=== PATIENT | female | born 1960 | race Caucasian/White ===

== ENCOUNTER 2018-10-16 10:52 | Emergency (ER) | payer MEDICAID ==
[2018-10-16] MEDS ORDERED: Morphine Sulfate 2 mg/mL 1mL Syr IVP STA ×4 (11:22→18:19)
[2018-10-16] MEDS ORDERED: Lactated Ringer 1,000 ML IV ONE (11:23)
[2018-10-16] MEDS ORDERED: Morphine Sulfate 2 mg/mL 1mL Syr ONE ×4 (11:54→18:22)
[2018-10-16 13:04] LABS: ALB/GLOB RATIO 1.4 (1.0-1.8); ALBUMIN 4.3 gm/dL (3.7-5.3); ALKALINE PHOSPHATASE 143 U/L (34-104); ANION GAP 14.2 (7.0-16.0); BILIRUBIN,TOTAL 0.4 mg/dL (0.3-1.0); BUN - UREA NITROGEN 21 mg/dL (7-25); CALCIUM SERUM 9.9 mg/dL (8.6-10.3); CARBON DIOXIDE 23.9 mEq/L (21.0-31.0); CHLORIDE 105 mEq/L (98-107); CREATININE - SERUM 0.9 mg/dL (0.6-1.2); GFR AFRICAN-AMERICAN > 60.0 ml/min (>90); GFR NON AFRICAN-AMERICAN > 60.0 ml/min; GLUCOSE 103 mg/dL (70-105); POTASSIUM SERUM 4.1 mEq/L (3.5-5.1); SGOT 16 U/L (13-39); SGPT/ALT 16 U/L (7-52); SODIUM SERUM 139 mEq/L (136-145); TOTAL PROTEIN,SERUM 7.4 gm/dL (6.0-8.3)
[2018-10-16] MEDS ORDERED: IOHEXOL 350mgI/mL 150mL IV ONE (13:24)
--- NOTE | 2018-10-16 13:52 | Diagnostic Imaging Report ---
Bilateral lower extremity DVT study HISTORY: Elevated d-dimer COMPARISON: None Technique: Longitudinal and transverse sonographic images of the bilateral lower extremity veins were obtained with doppler analysis. FINDINGS: There is normal compressibility, augmentation and phasicity of the bilateral common femoral, superficial femoral, popliteal, and posterior tibial veins. No thrombus is visualized. IMPRESSION: No evidence of thrombus within the bilateral lower extremity veins.
--- NOTE | 2018-10-16 14:34 | Diagnostic Imaging Report ---
CT pulmonary angiogram spine with IV contrast HISTORY: Back pain COMPARISON: CT lumbar spine performed the same day Technique: Axial images of the thorax were obtained with IV contrast, PE protocol. Multiplanar reconstructions were made. Total DLP: 200, CTDI 9 Findings: No evidence of mediastinal lymphadenopathy. Mild atherosclerosis is noted. No evidence of an aortic aneurysm. Assessment of the pulmonary arterial vasculature demonstrates no evidence of a pulmonary embolus. Note there is streak artifact from IV contrast within the SVC, limiting the examination. Evaluation of pulmonary parenchyma demonstrates chronic lung changes with mild peripheral atelectatic changes. Faint infiltrate of the anterior left upper lobe cannot be excluded. No focal consolidation or effusions. The upper abdomen demonstrates no acute abnormalities. There is a fracture of the L1 vertebral body. Postsurgical changes of the left axillary region is noted. IMPRESSION: No evidence of pulmonary embolus. Mild chronic lung changes and possible COPD. Faint infiltrate of the anterior left upper lobe cannot be excluded. L1 fracture. Please refer to CT lumbar spine the same day for further details. A pathological fracture due to neoplastic involvement cannot be excluded. Note is made of postsurgical changes of the left axillary region. Please correlate patient's clinical history. Mild atherosclerosis.
--- NOTE | 2018-10-16 14:38 | Diagnostic Imaging Report ---
CT lumbar spine without IV contrast HISTORY: Back pain, history of breast cancer with metastases to the right hip COMPARISON: CT PE study of same day Technique: Axial images were obtained from the lower thoracic spine to the upper sacrum without IV contrast. Reconstructions were made. total DLP: 1323, CTDI42 Findings: Images of the lumbar spine obtained without contrast demonstrate complex-appearing fracture involving the L1 vertebral body with a 2 mm retropulsion superiorly and ill-defined demineralization of this vertebral body. There is 20% loss of height of L1. There is mild spinal canal narrowing at this level. No subluxation. Mild to moderate degenerative changes noted greatest in the facet joints of the lower lumbar spine. Multilevel small disc bulges are noted greatest at L4/L5 measuring 3 mm causing mild spinal canal and mild bilateral neural foraminal narrowing. The visualized retroperitoneum demonstrates apertures. Excreted contrast is seen within the urinary tract system secondary to recent CT angiogram study. IMPRESSION: ill defined compression fracture of L1 with 20% loss of height. There is also 2 mm retropulsion with mild spinal canal narrowing. Ill-defined bony mineralization of L1 is noted. Given clinical history, a pathologic compression fracture and metastatic disease of the L1 vertebral body should be considered. If indicated further assessment with MRI without and with IV contrast may be obtained for further involvement and possible epidural involvement. Degenerative changes Osteopenia. Atherosclerotic vascular disease.
[2018-10-16] MEDS ORDERED: cefTRIAXone 1 GM in Sodium Chloride 0.9% 50 ML IV ONE (14:56)
[2018-10-16 15:31] LABS: % BASOPHILS 0.8 % (0.0-2.0); % EOSINOPHILS 0.9 % (0.0-5.0); % LYMPHOCYTES 12.7 % (20.0-50.0); % MONOCYTES 6.3 % (2.0-10.0); % NEUTROPHILS 79.3 % (40.0-80.0); BASOPHILE ABSOLUTE 0.1 Th/cumm (0-0.2); EOSINOPHILE ABSOLUTE 0.1 Th/cmm (0.1-0.4); HEMOGLOBIN 11.1 gm/dL (12-16); LYMPHOCYTE ABSOLUTE 0.8 Th/cmm (1.5-3.0); MEAN CORPUSCULAR HEMOGLOBIN 30.9 pg (27.0-31.0); MEAN CORPUSCULAR HGB CONC 33.6 pg (28.0-36.0); MEAN PLATELET VOLUME 8.1 fl; MONOCYTE ABSOLUTE 0.4 Th/cmm (0.3-1.0); PLATELET COUNT 254 Th/cmm (150-400); RED BLOOD COUNT 3.59 Mil/cmm (3.80-5.10); RED CELL DISTRIBUTION WIDTH 12.3 % (11.5-20.0); WHITE BLOOD COUNT 6.4 Th/cmm (4.8-10.8)
[2018-10-16 15:42] LABS: MAGNESIUM 2.3 mg/dL (1.9-2.7); PHOSPHOROUS 3.6 mg/dL (2.5-5.0)
--- NOTE | 2018-10-16 18:25 | ED Physician Chart ---
ED Chief Complaint/HPI - Patient Information Date Seen:: 10/16/18 Time Seen:: 11:16 Chief Complaint:: low back pain History of Present Illness:: low back pain in a patient who was diagnosed with breast cancer 2 years ago. BLE swelling "over night." Minimal shortness of breath. No change in bowel or bladder No change in sensation. Painful to lie down. Allergies:: Allergies Allergy/AdvReac Type Severity Reaction Status Date / Time No Known Allergies Allergy Verified 10/16/18 11:12 Vitals:: Vital Signs - 8 hr 10/16/18 10/16/18 10/16/18 11:16 12:04 18:08 Temp 98.4 F 98.4 F 98.9 F HR 83 83 79 RR 23 23 17 BP 147/61 O2 Sat % 99 98 10/16/18 18:15 Temp 98.9 F HR 79 RR 17 BP 168/61 O2 Sat % 98 Historian:: Patient, Family Member Review:: Nurse's Note Reviewed ED Review of Systems - Review of Systems General/Constitutional: No fever, No chills, No weight loss, No weakness, No diaphoresis, No edema, No loss of appetite Skin: No skin lesions, No rash, No bruising Head: No headache, No light-headedness Eyes: No loss of vision, No pain, No diplopia ENT: No earache, No nasal drainage, No sore throat, No tinnitus Neck: No neck pain, No swelling, No thyromegaly, No stiffness, No mass noted Cardio Vascular: No chest pain, No palpitations, No PND, No orthopnea, No edema Pulmonary: SOB, No cough, No sputum, No wheezing GI: No nausea, No vomiting, No diarrhea, No pain, No melena, No hematochezia, No constipation, No hematemesis G/U: No dysuria, No frequency, No hematuria Musculoskeletal: Back pain, No muscle pain Endocrine: No polyuria, No polydipsia Psychiatric: No prior psych history, No depression, No anxiety, No suicidal ideation Hematopoietic: No bruising, No lymphadenopathy Allergic/Immuno: No urticaria, No angioedema Neurological: No syncope, No focal symptoms, No weakness, No paresthesia, No headache, No seizure, No dizziness, No confusion, No vertigo Other: BREAST CANCER WITH POSITIVE AREA R HIP WITH BONE SCAN ED Past Medical History - Past Medical History Obtainable: Yes Past Medical History: Other (breast cancer with pos R hip on bone scan. MRI tonight.) Family Medical History - Family Member Mother History Unknown: Yes ED Physical Exam - Physical Examination General/Constitutional: Awake, Well-developed, well-nourished, Alert, GCS 15, Non-toxic appearing, Ambulatory Other Gen/Cons comments:: in severe low back pain. Positive straight leg raise on left. Head: Atraumatic Eyes: Lids, conjuctiva normal, PERRL, EOMI Skin: Nl inspection, No rash, No skin lesions, No ecchymosis, Well hydrated, No lymphadenopathy ENMT: External ears, nose nl, Nasal exam nl, Lips, teeth, gums nl Neck: Nontender, No nuchal rigidity, No stridor Respiratory: Nl effort/Exclusion, Clear to Auscultation, No Wheeze/Rhonchi/Rales Cardio Vascular: RRR, No murmur, gallop, rubs, NL S1 S2 GI: No tenderness/rebounding/guarding, No organomegaly, No hernia, Normal BS's, Nondistended, No mass/bruits, No McBurney tenderness Other comments:: normal rectal tone. Other Extremities comments:: trace edema bilaterally. Negative Alice's. positive straight leg raise on left. Neuro/Psych: Alert/oriented, Normal sensory exam, Normal motor strength, Judgement/insight normal, Mood normal Other Misc comments:: scoliosis of back ED Labs/Radiology/EKG Results - Lab Results Results: Laboratory Tests 10/16/18 10/16/18 10/16/18 11:30 11:30 15:21 WBC 6.4 RBC 3.59 L Hgb 11.1 L Hct 33.0 L MCV 92.0 MCH 30.9 MCHC Differential 33.6 RDW 12.3 Plt Count 254 MPV 8.1 Neutrophils % 79.3 Lymphocytes % 12.7 L Monocytes % 6.3 Eosinophils % 0.9 Basophils % 0.8 ESR D-Dimer 534 H Sodium 139 Potassium 4.1 Chloride 105 Carbon Dioxide 23.9 Anion Gap 14.2 BUN 21 Creatinine 0.9 Est GFR ( Amer) > 60.0 Est GFR (Non-Af Amer) > 60.0 BUN/Creatinine Ratio 23.3 Glucose 103 Calcium 9.9 Phosphorus Magnesium Total Bilirubin 0.4 AST 16 ALT 16 Alkaline Phosphatase 143 H Total Protein 7.4 Albumin 4.3 Globulin 3.1 Albumin/Globulin Ratio 1.4 10/16/18 10/16/18 15:21 15:21 WBC RBC Hgb Hct MCV MCH MCHC Differential RDW Plt Count MPV Neutrophils % Lymphocytes % Monocytes % Eosinophils % Basophils % ESR 61 H D-Dimer Sodium Potassium Chloride Carbon Dioxide Anion Gap BUN Creatinine Est GFR ( Amer) Est GFR (Non-Af Amer) BUN/Creatinine Ratio Glucose Calcium Phosphorus 3.6 Magnesium 2.3 Total Bilirubin AST ALT Alkaline Phosphatase Total Protein Albumin Globulin Albumin/Globulin Ratio ED Assessment - Assessment General Assessment: BLE duplex negative for DVT. lumbar CT scan: L1 compression fracture with 20% loss of height and 2 mm retropulsion into spinal canal. no pulmonary embolus. Left upper lobe infiltrate? first phone call to [facility] (no beds) 15:45 next phone call to [facility] phone call to [facility] called us back at 17:33. Dr. Carranza: ER to ER: EMTALA higher level of care transfer (spoke to Neurosurgery earlier). ED Septic Shock - . Is Septic Shock (SBP<90, OR Lactate>4 mmol\\L) present?: No - <6hrs of presentation: Vital Signs: Vital Signs - 8 hr 10/16/18 10/16/18 10/16/18 11:16 12:04 18:08 Temp 98.4 F 98.4 F 98.9 F HR 83 83 79 RR 23 23 17 BP 147/61 O2 Sat % 99 98 10/16/18 18:15 Temp 98.9 F HR 79 RR 17 BP 168/61 O2 Sat % 98 ED Reassessment (Disposition) - Reassessment Reassessment Condition:: Improved - Diagnosis Diagnosis:: Lumbar 1 fracture with 20% loss of height (suspicious for met) and 2 mm retropulsion Possible left upper lobe infiltrate vs. post obstructive process. Elevated alk phos (worrisome for bony met) Elevated sed rate Anemia Elevated d-dimer - Patient Disposition Discharge/Transfer:: Acute Care (other hosp) Condition at Disposition:: Stable, Improved
== END 2018-10-16 19:10 | disposition short-term general hospital (02) ==
LOC: ER 10:52
DX: S32.019A Unspecified fracture of first lumbar vertebra, initial encounter for closed fracture (principal); D64.9 Anemia, unspecified; R74.8 Abnormal levels of other serum enzymes; R70.0 Elevated erythrocyte sedimentation rate; Z85.3 Personal history of malignant neoplasm of breast; X58.XXXA Exposure to other specified factors, initial encounter; Y93.89 Activity, other specified; Y92.89 Other specified places as the place of occurrence of the external cause; Y99.8 Other external cause status
CPT/HCPCS: 99285; 96365; 96375; 96376; 93970; 71275; 72132; 36415; 85379; 85025; 85652; 83735; 84100; 80053; 87040; J2270 ×4; J2405 ×2; J0696; J2930; Z7610